=== PATIENT | male | born 1995 | race Caucasian/White ===

== ENCOUNTER 2019-12-11 20:57 | Emergency (ER) | payer OTHER ==
[~2019-12-11] VITALS: Ht 182.9 cm; Wt 77.3 kg
[2019-12-11 21:03] VITALS: BP 190/105; TEMP 97.8
[2019-12-11 22:00] VITALS: PULSE 76
== END 2019-12-11 22:00 | disposition home or self-care (01) ==
LOC: COL.ER 20:57
DX: M25.511 Pain in right shoulder (principal)